=== PATIENT | male | born 1945 | race Caucasian/White ===

== ENCOUNTER 2018-08-24 08:35 | Outpatient (CLI) | payer MEDICARE ==
--- NOTE | 2018-08-24 13:38 | CT ---
EXAM: CT of the chest without and with contrast CT of the abdomen and pelvis without and with contrast HISTORY: History of abdominal aortic aneurysm COMPARISON: None TECHNIQUE: 1. Multiple contiguous axial images were obtained in a CT the chest without and with contrast. Thapa l reformats were performed. 2. Multiple contiguous axial images were obtained and a CT of the abdomen and pelvis without and with contrast. Coronal reformats were performed. FINDINGS: CT CHEST: HEART: Normal in size without focal cardiac abnormality. Calcific lesions are seen in the coronary ar teries. MEDIASTINUM: No hilar or mediastinal lymphadenopathy. LUNGS: A 3 mm calcified granuloma is seen in the right lower lobe on image 55 of 61. PLEURAL SPACE: No pneumothorax or pleural effusion. THORACIC AORTA: Normal in caliber without evidence of dissection. CHEST WALL SOFT TISSUES: Status post sternotomy. No focal soft tissue abnormality is seen. CT ABDOMEN/PELVIS: ABDOMEN: LIVER: within normal limits. BILE DUCTS: Normal caliber. GALLBLADDER: Calcified gallstone without gallbladder wall thickening. PANCREAS: within normal limits. SPLEEN: within normal limits. ADRENALS: within normal limits. KIDNEYS: within normal limits. ABDOMINAL AORTA: Normal in caliber without evidence of dissection or aneurysmal dilatation. The junior c trunk, SMA, and LETICIA are patent. There is a single renal artery on the right. 2 renal arteries are seen on the left. A stent is seen within the dominant left proximal renal artery. PELVIS: REPRODUCTIVE ORGANS: No pelvic masses. URETERS: within normal limits. BLADDER: within normal limits. PERITONEUM: No ascites or free air, no fluid collection. BOWEL: Normal caliber. MESENTERY AND RETROPERITONEUM: No enlarged mesenteric or retroperitoneal lymph nodes. VESSELS: Normal. ABDOMINAL WALL: within normal limits. OSSEOUS STRUCTURES: Degenerative changes in the spine. Status post bilateral hip arthroplasty. IMPRESSION: 1. No evidence of aortic aneurysm or dissection 2. Cholelithiasis
== END 2018-08-24 08:36 | disposition home or self-care (01) ==
LOC: BICCT 08:35
PROVIDERS: ATTEND Family Medicine
DX: Q27.2 Other congenital malformations of renal artery (principal); K80.20 Calculus of gallbladder without cholecystitis without obstruction; Z86.79 Personal history of other diseases of the circulatory system; Z98.890 Other specified postprocedural states
CPT/HCPCS: 71250; 71260; 71270; 74177

== ENCOUNTER 2020-09-11 10:37 | Outpatient (CLI) | payer MEDICARE | END 2020-09-11 10:38 | disposition home or self-care (01) | LOC: BICRAD 10:37 | PROVIDERS: ATTEND Student in an Organized Health Care Education/Training Program | DX: M25.552 Pain in left hip (principal); Z96.642 Presence of left artificial hip joint ==

== ENCOUNTER 2021-01-29 12:44 | Outpatient (CLI) | payer MEDICARE ==
[2021-01-29] MEDS ORDERED: Iopamidol-370 76% 500 ML 1 ML ONE (12:45)
== END 2021-01-29 12:45 | disposition home or self-care (01) ==
LOC: BICCT 12:44
PROVIDERS: ATTEND Family Medicine
DX: Z86.79 Personal history of other diseases of the circulatory system (principal); Z98.890 Other specified postprocedural states
CPT/HCPCS: 71260; 74177; 82565; Q9967

== ENCOUNTER 2021-04-23 09:58 | Outpatient (CLI) | payer MEDICARE | END 2021-04-23 09:59 | disposition home or self-care (01) | LOC: MRI 09:58 | PROVIDERS: ATTEND Student in an Organized Health Care Education/Training Program | DX: M25.552 Pain in left hip (principal); Z96.642 Presence of left artificial hip joint ==

== ENCOUNTER 2022-04-07 07:21 | Outpatient (CLI) | payer MEDICARE | END 2022-04-07 07:22 | disposition home or self-care (01) | LOC: NM 07:21 | PROVIDERS: ATTEND Specialist | DX: T84.84XA Pain due to internal orthopedic prosthetic devices, implants and grafts, initial encounter (principal); M16.12 Unilateral primary osteoarthritis, left hip; Z96.642 Presence of left artificial hip joint | CPT/HCPCS: 78315; A9503 ==

== ENCOUNTER 2022-10-28 09:50 | Outpatient (CLI) | payer MEDICARE | END 2022-10-28 09:51 | disposition home or self-care (01) | LOC: BICCT 09:50 | PROVIDERS: ATTEND Specialist | DX: M25.552 Pain in left hip (principal); Z96.642 Presence of left artificial hip joint ==